=== PATIENT | male | born 1990 | race Caucasian/White ===

== ENCOUNTER 2022-10-05 08:58 | Outpatient (REF) | payer OTHER, SELFPAY ==
[2022-10-05 09:07] LABS: MANUAL DIFF FLAG NO
[2022-10-05 09:36] LABS: Basophils Absolute Auto 0.1 X10*3/uL (0.0-0.2); Basophils Percent Auto 0.8 % (0-2); Eosinophils Absolute Auto 0.2 X10*3/uL (0.0-0.4); Eosinophils Percent Auto 2.1 % (0-4); Hematocrit 44.8 % (42.0-52.0); Hemoglobin 14.7 g/dl (14.0-18.0); Imm Gran Abs Auto 0.08 X10*3/uL (0.00-0.03); Imm Gran Pct Auto 1.1 % (0.0-0.4); Lymphocytes Absolute Auto 2.3 X10*3/uL (1.2-4.9); Lymphocytes Percent Auto 32.1 % (20-40); Mean Corpuscular HGB Conc 32.8 g/dl (31.0-36.0); Mean Corpuscular Hemoglobin 30.4 pg (27.0-33.0); Mean Corpuscular Volume 92.8 fL (80.0-98.0); Mean Platelet Volume 8.9 fL (9.4-12.4); Monocytes Absolute Auto 0.7 X10*3/uL (0.1-1.2); Monocytes Percent Auto 9.1 % (2-11); Neutrophils Absolute Auto 3.9 x10*3/uL (2.0-8.3); Neutrophils Percent Auto 54.8 % (45-73); Platelet Count 248 X10*3/uL (160-400); Red Blood Count 4.83 X10*6/uL (4.60-5.80); White Blood Count 7.1 X10*3/uL (4.8-10.8)
[2022-10-05 10:23] LABS: Alanine Aminotransferase 39 U/L (0-40); Albumin Level 4.3 g/dL (3.5-5.0); Alkaline Phosphatase 79 U/L (39-117); Anion Gap 9 (12-20); Aspartate Amino Transferase 23 U/L (5-37); Bilirubin Total 0.9 mg/dL (0.0-1.0); Blood Urea Nitrogen 13 mg/dL (9-16); Calcium 9.6 mg/dL (8.4-10.2); Carbon Dioxide 29 mmol/L (22-29); Chloride 106 mmol/L (96-108); Cholesterol 195 mg/dL; Estimated Glomerular Filt Rate > 60; Glucose Fasting 100 mg/dL (60-99); HDL Cholesterol 32 mg/dL; LDL Cholesterol Calculated 143 mg/dl; Potassium 4.2 mmol/L (3.3-5.1); Sodium 140 mmol/L (135-145); Total Protein 7.1 g/dL (6.5-8.0); Triglycerides 100 mg/dL
== END 2022-10-05 08:59 | disposition home or self-care (01) ==
LOC: HO.LAB 08:58
PROVIDERS: PCP Family Medicine; Visit Provider Nurse Practitioner Family
DX: Z00.00 Encounter for general adult medical examination without abnormal findings (principal); Z20.2 Contact with and (suspected) exposure to infections with a predominantly sexual mode of transmission
CPT/HCPCS: 36415; 80053; 80061; 85025

== ENCOUNTER 2022-10-10 15:50 | Outpatient (AMB) | payer OTHER, SELFPAY ==
[2022-10-10 16:08] VITALS: BP 112/74; PULSE 88; O2SAT 98; BMI 26.1
--- NOTE | 2022-10-10 16:08 | A.OFFPC_ITS ---
Vital Signs 10/10/22 16:08 Height 5 ft 6.5 in Weight 164 lb 2 oz BMI 26.1 BP 112/74 Blood Pressure Location Lt brachial Position Sitting Pulse 88 Pulse Source Pulse Oximeter Pulse Oximetry (%) 98 Oxygen Delivery Method Room Air Intake Visit Reasons: PE Intake Note: Patient is here today for physical and to follow up on labs. Patient would like to talk about ADHD meds today. He states he was on Adderall some time ago. Allergies amoxicillin [AMOXICILLIN] Allergy (Unknown, Verified 10/10/22 16:15) UNKNOWN, rash Tobacco use date assessed: 10/10/21 Dental Screening Dental Screen Date: 10/10/22 Did you have a dental visit in the last 12 months?: No Did you have a dental problem in the last 6 months where you did not have access to dental care?: No Was dental information given to patient?: Patient has dentist HPI PE HPI Details 31 y/o male presents for a CPE with f/u labs and health maintenance. Labs were drawn 10/05/22. Reviewed labs with pt. Elevated fasting glucose of 100. A1c today 10/10/22 is 5.2%. Triglycerides 100. TC 195. LDL 143. HDL low at 32. Pt reports he has had a hx of ADHD. [facility] Surgical History History of appendectomy Social History Housing: Apartment Alcohol intake: never Patient Tobacco Use Status: Current everyday Tobacco user Tobacco use type: Cigarette Cigarettes Per Day: 10 e-Cigarette/Vaping Use: Never Used Second Hand Smoke Exposure: No service: No Current occupational status: employed Current occupational exposures/hazards: No Cognitive needs: No Hearing needs: No Vision needs: No Questionnaire Thrive Questionnaire Date Thrive assessed: 09/21/20 GÓMEZ-7 AMB Questionnaire GÓMEZ-7 Date GÓMEZ - 7 assessed: 09/21/20 Source: Developed by Drs. Terry Perry, Alba Adhikari, Dre Crook and colleagues, with an educational irina from [employer]. Physical exam (Primary Care) Vital Signs: Last Vital Signs Pulse 88 10/10/22 16:08 BP 112/74 10/10/22 16:08 Pulse Ox 98 10/10/22 16:08 Oxygen Delivery Method Room Air 10/10/22 16:08 BMI result Body Mass Index 26.1 Tobacco/Smoking Status: Tobacco use Status Tobacco use date assessed 10/10/21 10/10/22 16:20 Patient Tobacco Use Status Current everyday Tobacco 10/10/22 16:20 Tobacco use type Cigarette 10/10/22 16:20 e-Cigarette/Vaping Use Never Used 10/10/22 16:20 Thrive Assessment: Date of Thrive Assessment Date Thrive assessed 09/21/20 10/10/22 16:20 Results AMB Hemoglobin A1c AMB Hemoglobin A1c 5.2 % Last Edit by Kymberly Peralta CMA on 10/10/22 17:11 Results Reviewed Results Reviewed: Laboratory Last Values Hgb A1c (Clinic) 5.2 % (4.0-6.0) 10/10/22 17:09 Assessment and Plan Assessment & Plan (1) Elevated fasting glucose: Code(s): R73.01 - Impaired fasting glucose Plan: A1c 5.2% is still within normal range though towards upper limits and he has a strong family history of diabetes Encouraged diet lower in sugars and starches Encouraged exercise and weight control (2) Elevated LDL cholesterol level: Code(s): E78.00 - Pure hypercholesterolemia, unspecified Plan: Elevated LDL cholesterol and low HDL Encouraged diet lower in saturated fats and cholesterol Encouraged weight control and exercise Will recheck in about 3 months. If not significantly improved we may want to discuss a statin medication. (3) Low HDL (under 40): Code(s): E78.6 - Lipoprotein deficiency Plan: As above (4) Difficulty concentrating: Code(s): R41.840 - Attention and concentration deficit Plan: Patient notes difficulty concentrating. He says that he had a diagnosis of ADHD in the past and was using Adderall for this. He will try to get records to establish this diagnosis We discussed that otherwise he will need to be referred if he wants to consider treatment for this with medication. (5) Anxiety and depression: Code(s): F41.9 - Anxiety disorder, unspecified; F32.9 - Major depressive disorder, single episode, unspecified Plan: Taking fluoxetine as prescribed and he says that this has kept him rather stable. He says he notices when he does not take medication. Continue as prescribed (6) Adult general medical exam: Code(s): Z00.00 - Encounter for general adult medical examination without abnormal findings Plan: 31-year-old male presents for an extended exam Encouraged healthy diet with active lifestyle and plenty of exercise Orders: Orders AMB Hemoglobin A1c Today Z13.9 - Encounter for screening, unspecified Comprehensive [place]. Panel Fast Today E78.00 - Pure hypercholesterolemia, unspecified, Z00.00 - Encounter for general adult medical examination without abnormal findings Lipid Panel Today E78.00 - Pure hypercholesterolemia, unspecified, Z00.00 - Encounter for general adult medical examination without abnormal findings TSH reflex Free T4 Today Z00.00 - Encounter for general adult medical examination without abnormal findings Medications: Refilled fluoxetine 20 mg PO DAILY 90 caps 3RF 90 days Coding Level of Care Code Est Pt Level 3 (28987) Est Pt Prev Care 18-39y(90827) Diagnoses Elevated fasting glucose R73.01 Elevated LDL cholesterol level E78.00 Low HDL (under 40) E78.6 Difficulty concentrating R41.840 Anxiety and depression F41.9; F32.9 Adult general medical exam Z00.00
== END 2022-10-10 17:17 | disposition home or self-care (01) ==
PROVIDERS: PCP Family Medicine; Visit Provider Family Medicine
DX: Z00.00 Encounter for general adult medical examination without abnormal findings (principal); F41.9 Anxiety disorder, unspecified; F32.9 Major depressive disorder, single episode, unspecified; R73.01 Impaired fasting glucose; R41.840 Attention and concentration deficit; E78.00 Pure hypercholesterolemia, unspecified; E78.6 Lipoprotein deficiency
CPT/HCPCS: 83036; 99395

== ENCOUNTER 2023-05-20 10:06 | Outpatient (AMB) | payer OTHER, SELFPAY ==
[2023-05-20 10:25] VITALS: BP 120/68; PULSE 72; O2SAT 98; BMI 28.8
--- NOTE | 2023-05-20 10:25 | MHC.OFFWIV ---
Intake Vital Signs 05/20/23 10:25 Height 5 ft 6.5 in Weight 181 lb BMI 28.8 BP 120/68 Blood Pressure Location Lt brachial Position Sitting Pulse 72 Pulse Source Pulse Oximeter Pulse Oximetry (%) 98 Oxygen Delivery Method Room Air Intake Visit Reasons: ? cyst Intake Note: Patient has has a growth on shft and penis area, may be ingrown hair, not sure, has been bothering him for about 2 weeks, and noticed a white head on it, with clear fluid leaking out of it. Patient Tobacco Use Status: Current everyday Tobacco user Allergies amoxicillin [AMOXICILLIN] Allergy (Unknown, Verified 05/20/23 10:54) UNKNOWN, rash Medication List - Last Reconciled 05/20/23 by Mary Nelson, ELECTROPHYSIOLOGY SCIENTIST- fluoxetine 20 mg PO DAILY 90 days Do you need a note to return to daycare/school/sports/work: Yes HPI HPI Comments History of Present Illness Details 32-year-old male here today with concerns of a lesion on his penis. In monogamous relationship with a female for the last few months. Admits other sexual relations prior to this. ingrown hair like area noticed about 2 weeks ago on penile shaft looked like a otto developed; the otto was able to be expressed however the lesion remains has felt a sensation over the past few months in this area prior to the onset of the lesion. has noticed colorless but not odorless discharge for months no high concern for STD though it is a possibility denies fever, chills, urinary complaints has 2 skin tag like lesions on the left side of shaft that have come and go over the last few years Not UTD on HPV - interested in getting this. Advised to seek this at the pharmacy. [facility] Surgical History History of appendectomy Social History Housing: Apartment Alcohol intake: never Patient Tobacco Use Status: Current everyday Tobacco user Tobacco use type: Cigarette Cigarettes Per Day: 10 e-Cigarette/Vaping Use: Never Used Second Hand Smoke Exposure: No service: No Current occupational status: employed Current occupational exposures/hazards: No Cognitive needs: No Hearing needs: No Vision needs: No Physical Exam Vital Signs: Last Vital Signs Pulse 72 05/20/23 10:25 BP 120/68 05/20/23 10:25 Pulse Ox 98 05/20/23 10:25 Oxygen Delivery Method Room Air 05/20/23 10:25 BMI result Body Mass Index 28.8 Other: awake alert offered and declined screwhead polisher No drainage noted during exam Male genitals images: 1. slightly raised lesion, flesh colored w/ thin white crusting. Painless. No drainage or erythema. 2. raised flesh colored wart 3. raised flesh colored wart Assessment & Plan Assessment & Plan (1) Penile lesion: Comment: Unsure exactly what this lesion is, on left side of his penis. Refer to urology for further evaluation and treatment Code(s): N48.9 - Disorder of penis, unspecified Plan: . (2) Genital warts: Comment: Refer to [facility] for further evaluation and treatment Code(s): A63.0 - Anogenital (venereal) warts (3) Penile discharge: Comment: Check urine for trich, gonorrhea and Chlamydia, treat as appropriate. Code(s): R36.9 - Urethral discharge, unspecified Plan This note is constructed using voice recognition software. While every effort has been made to ensure accuracy in box hinge and lock attacher, still errors may have been included Sometimes, these errors may affect the content or meaning of the given sentence . Total time spent caring for the patient today was 30 minutes. This includes time spent before the visit reviewing the chart, time spent during the visit, and time spent after the visit on documentation Orders: Orders UA w Microscopic Today A63.0 - Anogenital (venereal) warts, N48.9 - Disorder of penis, unspecified, R36.9 - Urethral discharge, unspecified CT NG by PCR Today A63.0 - Anogenital (venereal) warts, N48.9 - Disorder of penis, unspecified, R36.9 - Urethral discharge, unspecified Referrals Urology Referral A63.0 - Anogenital (venereal) warts, N48.9 - Disorder of penis, unspecified Coding Level of Care Code Est Pt Level 4 (40226) Diagnoses Penile lesion N48.9 Genital warts A63.0 Penile discharge R36.9
== END 2023-05-20 11:12 | disposition home or self-care (01) ==
PROVIDERS: PCP Family Medicine; Visit Provider Nurse Practitioner Family
DX: N48.9 Disorder of penis, unspecified (principal); A63.0 Anogenital (venereal) warts; R36.9 Urethral discharge, unspecified
CPT/HCPCS: 99214

== ENCOUNTER 2023-05-20 11:11 | Outpatient (REF) | payer OTHER, SELFPAY ==
[2023-05-20 14:40] LABS: Appearance Urine Clear; Color Urine Yellow; Glucose Urine UA Negative (Negative); Leukocyte Esterase Urine Negative (Negative); Nitrite Urine Negative (Negative); Urine Blood Negative (Negative); Urine Ketones Negative (Negative); Urine Protein Negative (Neg-Trace)
[2023-05-20 14:43] LABS: Bacteria Urine None Seen (None Seen); Hyaline Casts Urine 0-2 /LPF (0-2); RBC Urine 0-2 /HPF (0-2); Squamous Epithelial Cell Urine 0-2 /HPF (0-2); WBC Urine 0-5 /HPF (0-5)
== END 2023-05-20 11:12 | disposition home or self-care (01) ==
LOC: HO.WFDLDS 11:11
PROVIDERS: Visit Provider Nurse Practitioner Family
DX: R36.9 Urethral discharge, unspecified (principal); N48.9 Disorder of penis, unspecified; A63.0 Anogenital (venereal) warts
CPT/HCPCS: 81001

== ENCOUNTER 2023-06-28 13:27 | Outpatient (AMB) | payer OTHER, SELFPAY ==
--- NOTE | 2023-06-28 13:33 | A.OFFPC_ITS ---
Vital Signs 06/28/23 13:44 Height 5 ft 6.5 in Weight 178 lb 4 oz BMI 28.3 BP 112/68 Blood Pressure Location Rt brachial Position Sitting Respiration 12 Pulse 58 Pulse Source Pulse Oximeter Temp 98.2 F Temp Source Oral Pulse Oximetry (%) 97 Oxygen Delivery Method Room Air Intake Visit Reasons: 3 month follow up, chloresterol Intake Note: Follow up. Was unable to get labs done prior to visit Vice President Of Marketing Required: No Allergies amoxicillin [AMOXICILLIN] Allergy (Unknown, Verified 06/28/23 13:34) UNKNOWN, rash Tobacco use date assessed: 06/28/23 Dental Screening Dental Screen Date: 06/28/23 Did you have a dental visit in the last 12 months?: No Did you have a dental problem in the last 6 months where you did not have access to dental care?: No Was dental information given to patient?: Patient has dentist HPI 3 month follow up, chloresterol HPI Details 32 y/o male presents to f/u D. No recent labs to review for his lipids. Pt reports depression/anxiety. He is on fluoxetine 20mg daily. He is requesting a therapist. [facility] Surgical History History of appendectomy Social History Housing: Apartment Alcohol intake: never Patient Tobacco Use Status: Current everyday Tobacco user Tobacco use type: Cigarette Cigarettes Per Day: 8 Years Smoked: 15 e-Cigarette/Vaping Use: Never Used Second Hand Smoke Exposure: No service: No Current occupational status: employed Current occupation: Customer service/ accounting assistant Current occupational exposures/hazards: No Cognitive needs: No Hearing needs: No Vision needs: No Questionnaire PHQ-9 Over the last 2 weeks, how often have you been bothered by any of the following problems? 1. Little interest or pleasure in doing things: more than half the days 2. Feeling down, depressed, or hopeless: more than half the days 3. Trouble falling or staying asleep, or sleeping too much: not at all 4. Feeling tired or having little energy: not at all 5. Poor appetite or overeating: not at all 6. Feeling bad about yourself - or that you are a failure or have let yourself or your family down: more than half the days 7. Trouble concentrating on things, such as reading the newspaper or watching television: nearly every day 8. Moving or speaking so slowly that other people could have noticed. Or the opposite - being so fidgety or restless that you have been moving around a lot more than usual: not at all 9. Thoughts that you would be better off or of hurting yourself in some way: not at all Total score: 9 Depression Screening Interpretation: Positive Depression Screening Follow-up: Other (Referred?for?therapy) Depression Screening Done: Yes 12770 - PHQ-9 Billing: Yes Source: Developed by Drs. Terry Perry, Alba Adhikari, Dre Crook and colleagues, with an educational irina from [employer]. Thrive Questionnaire Date Thrive assessed: 06/28/23 I am a: Patient What is your living situation today?: I have a steady place to live Within the past 12 months, did the food you bought not last and you didn't have the money to get more?: Never true Within the past 12 months, did you worry whether your food would run out before you got money to buy more?: Never true Do you have trouble paying for medicines?: No Do you have trouble getting transportation to medical appointments?: Yes Do you have trouble paying your heating and electricity bill?: No Do you have trouble taking care of your child, family member or friend?: No Do you have trouble with day-to-day activities such as bathing, preparing meals, shopping, managing finances, etc.?: No Are you currently unemployed and looking for a job?: No Are you interested in more education?: No Please select the resources that you would like help with: None Currently or been in a relationship where the following occur: no concerns reported THRIVE Score: 1 AUDIT C Alcohol Use Questionnaire (AUDIT-C) 1. How often do you have a drink containing alcohol?: Never 3. How often do you have six or more drinks on one occasion?: Never Total Score: 0 GÓMEZ-7 AMB Questionnaire GÓMEZ-7 Date GÓMEZ - 7 assessed: 06/28/23 Feeling nervous, anxious, or on edge: 2 = More than half the days Not being able to stop or control worryin = More than half the days Worrying too much about different things: 2 = More than half the days Trouble relaxin = Nearly every day Being so restless that it is hard to sit still: 3 = Nearly every day Becoming easily annoyed or irritable: 3 = Nearly every day Feeling afraid as if something awful might happen: 0 = Not at all Total GÓMEZ-7 score (0-4 normal; 5-9 mild; 10-14 moderate; 15-21 severe): 15 Source: Developed by Drs. Terry Perry, Alba Adhikari, Dre Crook and colleagues, with an educational irina from [employer]. GÓMEZ-7 Assessment Billing GÓMEZ-7 Assessment Tool: GÓMEZ-7 Assessment 85956 Review of Systems Const Denies chills, Denies fatigue, Denies fever(s), Denies headache(s) and Denies weakness ENT Denies dizziness and Denies headache(s) Card Denies dyspnea Resp Denies cough, Denies dyspnea, Denies wheezing and Denies other (shortness of breath) Musc Denies numbness and Denies tingling Neuro Denies dizziness, Denies headache(s), Denies numbness, Denies tingling and De nies weakness Psych Denies anxiety and Denies depression Endo Denies fatigue Aller/Immun Denies wheezing Physical exam (Primary Care) Vital Signs: Last Vital Signs Temp 98.2 F 06/28/23 13:44 Pulse 58 06/28/23 13:44 Resp 12 06/28/23 13:44 BP 112/68 06/28/23 13:44 Pulse Ox 97 06/28/23 13:44 Oxygen Delivery Method Room Air 06/28/23 13:44 BMI result Body Mass Index 28.3 Tobacco/Smoking Status: Tobacco use Status Tobacco use date assessed 06/28/23 06/28/23 13:44 Patient Tobacco Use Status Current everyday Tobacco 06/28/23 13:44 Tobacco use type Cigarette 06/28/23 13:44 e-Cigarette/Vaping Use Never Used 06/28/23 13:44 PHQ-9: PHQ-9 Score PHQ-9: Total score 9 06/28/23 13:44 Depression Screening Interpretation: Positive Depression Screening Follow-up: Other (Referred?for?therapy) Thrive Assessment: Date of Thrive Assessment Date Thrive assessed 06/28/23 06/28/23 13:44 Currently or been in a relationship where the following occur: no concerns reported Const General: well developed; No acute distress Nutritional Appearance: well nourished Orientation/consciousness: patient oriented x3 HENMT Head: Yes normocephalic and Yes atraumatic Eyes General: appearance normal, both eyes and all related structures Pupils: Equal, round and reactive pupils present EOM: EOMs intact bilaterally Resp Effort & Inspection: normal respiratory effort Neuro General: patient oriented x3 and gait normal Cranial nerves: Yes Equal, round and reactive pupils present Psych Affect: normal affect Assessment and Plan Assessment & Plan (1) Anxiety and depression: Code(s): F41.9 - Anxiety disorder, unspecified; F32.9 - Major depressive disorder, single episode, unspecified Plan: Patient?would?like?a ?referral?to?therapy.??Will?ask?the?nurse?navigator?to?help?him?get?connected?wi th?a?therapist Continue?fluoxetine (2) Elevated LDL cholesterol level: Code(s): E78.00 - Pure hypercholesterolemia, unspecified Plan: Has?not?had?his?labs?drawn?yet.??He?will?do?so?and?we?can?follow-up?in?about ?a?month Orders: Referrals Nurse Navigator Referral F32.9 - Major depressive disorder, single episode, unspecified, F41.9 - Anxiety disorder, unspecified Coding Level of Care Code Est Pt Level 3 (66101) Diagnoses Anxiety and depression F41.9; F32.9 Elevated LDL cholesterol level E78.00 Additional Codes GÓMEZ-7 Assessment Billing - GÓMEZ-7 Assessment Tool: GÓMEZ-7 Assessment [id number] ([id number])
[2023-06-28 13:44] VITALS: BP 112/68; PULSE 58; RESP 12; TEMP 36.8; O2SAT 97; BMI 28.3
== END 2023-06-28 14:37 | disposition home or self-care (01) ==
PROVIDERS: PCP Family Medicine; Visit Provider Family Medicine
DX: E78.00 Pure hypercholesterolemia, unspecified (principal); F41.9 Anxiety disorder, unspecified; F32.9 Major depressive disorder, single episode, unspecified
CPT/HCPCS: 99213